=== PATIENT | male | born 1990 | race Caucasian/White ===

== ENCOUNTER 2024-05-08 11:06 | Outpatient (OUT) | payer BC, SELFPAY ==
--- NOTE | 2024-05-08 11:43 | XR_ITS ---
The [address] [address] Patient Name: KENDRA MORAN MRN: [id number] date: 1990 Sex: M Assigned Patient Location: [facility] Current Patient Location: [facility] Accession/Order Number: [id number] Exam Date: 05/08/2024 11:49 Report Date: 05/08/2024 15:50 At the request of: KY BARTON Procedure: XR chest 2V EXAMINATION: XR chest 2V HISTORY: Preop exam COMPARISON: No relevant comparison available. TECHNIQUE: PA and lateral FINDINGS: LUNGS: No significant pulmonary parenchymal abnormalities. VASCULATURE: No increased pulmonary vasculature. PLEURA: No pneumothorax, effusion, or pleural thickening. CARDIAC: No cardiomegaly or cardiac silhouette abnormality. MEDIASTINUM: No visible mass or adenopathy. BONES: No fracture or visible bone lesion. OTHER: Negative. XR/XR chest 2V IMPRESSION: No acute cardiopulmonary process Electronically authenticated by: KEISHA NIELSON Date: 05/08/2024 15:50
== END 2024-05-08 11:07 | disposition home or self-care (01) ==
LOC: PST 11:09
PROVIDERS: PCP Family Medicine; Visit Provider Surgery
DX: Z01.810 Encounter for preprocedural cardiovascular examination (principal); K40.90 Unilateral inguinal hernia, without obstruction or gangrene, not specified as recurrent
CPT/HCPCS: 71046

== ENCOUNTER 2024-05-24 08:25 | Day surgery (SDC) | payer BC, SELFPAY ==
[2024-05-08 11:15] VITALS: BP 138/72; PULSE 64; TEMP 36.6; O2SAT 98; BMI 24.7
[2024-05-24] VITALS (9 sets, daily range): BP systolic 142–156; BP diastolic 89–100; PULSE 54–96; TEMP 36.6; O2SAT 99–100; BMI 24.3
--- NOTE | 2024-05-24 | OP_ITS ---
OPERATION DATE: 05/24/2024 PREOPERATIVE DIAGNOSIS: Left inguinal hernia. POSTOPERATIVE DIAGNOSIS: Indirect left inguinal hernia. PROCEDURE: Left inguinal herniorrhaphy with Bard 5 x 10 cm mesh insertion. SURGEON: Dayne Flor M.D. ANESTHESIA: General with laryngeal mask airway as well as left sided TAP block per Dr. Mancia. ESTIMATED BLOOD LOSS: Less than 10 mL. INDICATIONS AND CONSENT: Patient is a 33-year-old male with history of a symptomatic, reducible left inguinal hernia that is increasing in size. Indications, risks, benefits, alternatives of proceeding with herniorrhaphy with mesh insertion were explained extensively to the patient, including the risks of bleeding, infection, scarring, pain, , nerve injury, testicular injury, blood clot, pulmonary embolus, heart attack, anesthetic complications, need for further surgery or mesh removal. All of his questions were answered. Informed consent was obtained. PROCEDURE: Patient brought to the operating room, placed in the supine position. General anesthesia was induced. Left sided TAP block was performed by Dr. Mancia. Patient was prepped and draped in the usual sterile fashion. Left groin incision was made in the area of the skin crease and carried down through subcutaneous tissue using sharp dissection. Justo?s fascia was divided. The external oblique was attenuated. It was opened along the direction of its fibers, down through the external inguinal ring. The cord structures were mobilized and retracted with a Stafford drain. There was noted to be an indirect sac that was carefully freed up from the cord structures, all the way up to the internal ring. It was empty. A high ligation was performed using a 3-0 Vicryl suture. There was noted to be a branch of the ilioinguinal nerve that was right in the area where the mesh would lie. Therefore, because of concerns for concerns for post-op pain, it was excised and the ends ligated with 3-0 Vicryl sutures. The wound was irrigated with saline. There was noted to be good hemostasis. The 5 x 10 cm Bard mesh was trimmed and a keyhole was created. It was placed in the floor of the inguinal canal. The arms were placed around the cord structures. It was then secured circumferentially using interrupted 3-0 Vicryl sutures. Care was taken to avoid undue tension on the cord structures. There was some redundancy of the mesh around the cord that was closed using a 2-0 Prolene suture. The wound was irrigated with saline. There was good hemostasis. The external oblique was then closed with a running 3-0 Vicryl suture. The subcutaneous tissues were infiltrated with the remaining Exparel solution. Justo?s fascia was re-approximated with interrupted 3-0 Monocryl suture. The skin was then closed with a running 4-0 subcuticular Monocryl suture and skin glue. Sterile pressure dressing was applied. Sponge and needle counts were correct x3 per nursing personnel. Patient tolerated procedure well, was sent to recovery room in good condition. CC: Hai Ramos M.D. [facility]
[2024-05-24] MEDS: LACTATED RINGER'S SOLUTION 1,000 ML 50 ML IV ×2 (08:58→12:01)
[2024-05-24] MEDS: LEVOFLOXACIN IN DEXTROSE 5 % 750 MG/150 ML IV.SOLN 100 MG IV (11:12)
[2024-05-24] MEDS: BUPIVACAINE LIPOSOME/PF 266 MG/13.3 ML VIAL 13.3000000000000007 MG INJ (11:50)
[2024-05-24] MEDS: BUPIVACAINE HCL 0.25% PF 25 MG/10 ML VIAL INJ (11:50)
[2024-05-24] MEDS: 0.9 % SODIUM CHLORIDE 10 ML INJ (11:50)
[2024-05-24] MEDS: HYDROCODONE/ACET 5-325 MG TABLET 1 TAB PO (14:01)
== END 2024-05-24 14:04 | disposition home or self-care (01) ==
PROVIDERS: PCP Family Medicine; Visit Provider Surgery
PROC: (CPT 00830; principal; 2024-05-24 10:00)
DX: K40.90 Unilateral inguinal hernia, without obstruction or gangrene, not specified as recurrent (principal); J45.909 Unspecified asthma, uncomplicated
CPT/HCPCS: 00830; 49505; 64488; 88302; C1781; J0665; J1100; J1885; J2250; J2405; J2704; J3010